=== PATIENT | female | born 1935 | race Caucasian/White ===

== ENCOUNTER 2017-12-17 15:48 | Outpatient (CLI) | payer MEDICARE, BC | END 2017-12-17 15:49 | disposition home or self-care (01) | LOC: BICRAD 15:48 | PROVIDERS: ATTEND Family Medicine | DX: M25.512 Pain in left shoulder (principal) ==

== ENCOUNTER 2019-06-17 11:26 | Outpatient (CLI) | payer MEDICARE, BC ==
--- NOTE | 2019-06-17 12:41 | RAD ---
LEFT HIP TWO VIEWS: 06/17/2019 HISTORY: Pain. Trauma. Fall. COMPARISON: None. FINDINGS: There is postoperative hardware associated with the proximal left femur. No displaced fracture or joan dence of dislocation. IMPRESSION: No acute fracture or dislocation is seen. Please note that the pelvis is not fully imaged on this examination. If symptoms persist, dedicated i maging of the pelvis with radiographs and/or CT recommended. POS: [facility]
== END 2019-06-17 11:27 | disposition home or self-care (01) ==
LOC: BICRAD 11:26
PROVIDERS: ATTEND Family Medicine
DX: M25.552 Pain in left hip (principal)

== ENCOUNTER 2019-10-10 07:46 | Outpatient (CLI) | payer MEDICARE, BC ==
--- NOTE | 2019-10-10 10:12 | BD ---
BONE DENSITOMETRY USING DEXA: HISTORY: Postmenopausal screening for osteoporosis, asymptomatic menopausal state. FINDINGS: Lumbar Spine: BMD (g/cm2) L1 0.697 T-Score: -2.7 L2 0.715 T-Score: -2.8 L3 0.671 T-Score: -3.8 L4 0.731 T-Score: -2.0 L1-L4 0.705 T-Score: -3.1 Femoral Neck: 0.556 T-Score: -2.6 Total Femur: 0.628 T-Score: -2.6 Impression: Osteoporosis. POS: [facility]
== END 2019-10-10 07:47 | disposition home or self-care (01) ==
LOC: BICMAMMO 07:46
PROVIDERS: ATTEND Family Medicine
DX: E28.39 Other primary ovarian failure (principal); Z13.820 Encounter for screening for osteoporosis; M81.0 Age-related osteoporosis without current pathological fracture; Z78.0 Asymptomatic menopausal state
CPT/HCPCS: 77080

== ENCOUNTER 2021-02-01 09:49 | Outpatient (CLI) | payer MEDICARE, BC | END 2021-02-01 09:50 | disposition home or self-care (01) | LOC: BICMAMMO 09:49 | PROVIDERS: ATTEND Family Medicine | DX: M81.0 Age-related osteoporosis without current pathological fracture (principal); M85.89 Other specified disorders of bone density and structure, multiple sites | CPT/HCPCS: 77080 ==

== ENCOUNTER 2022-05-08 07:27 | Outpatient (CLI) | payer MEDICARE, BC ==
[2022-05-08] MEDS ORDERED: Iopamidol 370 76% 100 ML VIAL ONE (10:07)
== END 2022-05-08 07:28 | disposition home or self-care (01) ==
LOC: CT 07:27
PROVIDERS: ATTEND Physician Assistant Medical
DX: K86.89 Other specified diseases of pancreas (principal); R93.3 Abnormal findings on diagnostic imaging of other parts of digestive tract; K86.2 Cyst of pancreas
CPT/HCPCS: 74170; 82565; Q9967

== ENCOUNTER 2022-11-21 07:29 | Outpatient (CLI) | payer MEDICARE, BC ==
[2022-11-21] MEDS ORDERED: Iopamidol-370 76% 500 ML MDV (1 ML CHARGE) ONE (10:04)
== END 2022-11-21 07:30 | disposition home or self-care (01) ==
LOC: BICCT 07:29
PROVIDERS: ATTEND Physician Assistant Medical
DX: K86.2 Cyst of pancreas (principal); R93.2 Abnormal findings on diagnostic imaging of liver and biliary tract; A04.72 Enterocolitis due to Clostridium difficile, not specified as recurrent
CPT/HCPCS: 74170; 82565